=== PATIENT | female | born 1985 | race Caucasian/White ===

== ENCOUNTER 2023-11-08 20:51 | Emergency (ER) | payer SELFPAY ==
[~2023-11-08] VITALS: Ht 167.6 cm; Wt 77.0 kg
[2023-11-08 20:56] VITALS: O2SAT 99
[2023-11-08] MEDS ORDERED: FAMOTIDINE 20MG TABLET PO ONE (22:00)
[2023-11-08] MEDS ORDERED: FAMO-135 MT (22:29)
[2023-11-08 22:45] VITALS: BP 152/69; PULSE 75; RESP 18; TEMP 98.4
== END 2023-11-08 22:46 | disposition home or self-care (01) ==
LOC: ER 20:51
DX: K20.90 Esophagitis, unspecified without bleeding (principal)
CPT/HCPCS: 70360; 99283